=== PATIENT | female | born 1980 | race Caucasian/White ===

== ENCOUNTER 2018-03-20 07:57 | Emergency (ER) | payer OTHER ==
[~2018-03-20] VITALS: Ht 160 cm; Wt 88.5 kg
[2018-03-20] MEDS ORDERED: MORPHINE SULFATE 2 MG/ML SYR IV STA ×2 (08:31→10:36)
[2018-03-20] MEDS ORDERED: KETOROLAC TROMETHAMINE 30 MG/ML VIAL IV STA (08:31)
[2018-03-20] MEDS ORDERED: DIATRIZOATE MEGL/DIATRIZOA SOD 30 ML BTL PO ONE (08:40)
[2018-03-20] MEDS ORDERED: ONDANSETRON HCL 4 MG ORAL DISINTEGRATING TAB PO ONE (08:45)
[2018-03-20 09:00] LABS: BASOPHILS # (AUTO) 0.1 (0.0-0.1); BASOPHILS % 0.4 % (0.0-1.0); EOSINOPHILS # (AUTO) 0.1 (0.0-0.4); EOSINOPHILS % 0.9 % (0.0-6.0); HEMOGLOBIN 12.4 g/dL (12.0-16.0); LYMPHOCYTES # (AUTO) 2.8 (1.0-3.2); LYMPHOCYTES % 18.7 % (18.0-39.1); MEAN CORPUSCULAR HGB CONC 33.5 g/dL (31-35); MEAN CORPUSCULAR VOLUME 86.4 fL (81-99); MONOCYTES # (AUTO) 0.5 (0.2-0.8); MONOCYTES % 3.3 % (4.4-11.3); NEUTROPHILS # (AUTO) 11.4 (2.1-6.9); NEUTROPHILS % 76.2 % (38.7-80.0); PLATELET COUNT 327 x10e3/uL (140-360); RED BLOOD COUNT 4.28 x10e6/uL (3.6-5.1); RED CELL DISTRIBUTION WIDTH 13.2 % (11.7-14.4)
[2018-03-20 09:12] LABS: ALANINE AMINOTRANSFERASE 25 IU/L (0-55); ALBUMIN 3.7 g/dL (3.5-5.0); ALBUMIN/GLOBULIN RATIO 1.1 (0.8-2.0); ALKALINE PHOSPHATASE 95 IU/L (40-150); AMYLASE 47 U/L (25-125); BLOOD UREA NITROGEN 10 mg/dL (7-26); BUN/CREATININE RATIO 13 (6-25); CALCIUM 9.5 mg/dL (8.4-10.2); CARBON DIOXIDE 23 mmol/L (22-29); CHLORIDE 105 mmol/L (98-107); CREATININE, SERUM 0.78 mg/dL (0.57-1.11); EST GLOMERULAR FILTRATION RATE > 60 ML/MIN (60-); GLUCOSE 120 mg/dL (74-118); LIPASE 33 U/L (8-78); SODIUM 139 mmol/L (136-145)
[2018-03-20 10:18] LABS: BILIRUBIN,URINE NEGATIVE (NEGATIVE); URINE UROBILINOGEN 0.2 mg/dL (0.2 - 1)
[2018-03-20 10:19] LABS: CLARITY,URINE SL CLOUDY (CLEAR); COLOR,URINE YELLOW (YELLOW); KETONES,URINE NEGATIVE (NEGATIVE); LEUKOCYTE ESTERASE ,URINE TRACE (NEGATIVE); NITRITE,URINE NEGATIVE (NEGATIVE); PROTEIN,URINE DIPSTICK NEGATIVE (NEGATIVE)
[2018-03-20 10:36] LABS: EPITHELIAL CELLS,URINE RARE /LPF; RBC,URINE 21-50 /HPF (0-5)
[2018-03-20 10:37] LABS: BACTERIA,URINE FEW /HPF
[2018-03-20] MEDS ORDERED: MORPHINE SULFATE 2 MG/ML SYR ONE (10:43)
--- NOTE | 2018-03-20 11:20 | Diagnostic Imaging Report ---
PROCEDURE: CT ABDOMEN AND PELVIS WITH CONTRAST TECHNIQUE: The abdomen and pelvis were scanned utilizing a multidetector helical scanner from the diaphragm to the lesser trochanter after the IV administration of 100 cc of Isovue 370 and the oral administration of Gastrografin intermixed with water. Coronal and sagittal multiplanar reformations were obtained. DLP: 759.11 mGy-cm COMPARISON: None. INDICATIONS: RIGHT SIDE ABD PAIN FINDINGS: LOWER THORAX: Normal. HEPATOBILIARY: No focal hepatic lesions. No biliary ductal dilatation. Gallbladder is absent. SPLEEN: No splenomegaly. Small splenule adjacent to the spleen PANCREAS: No focal masses or ductal dilatation. ADRENALS: There is a 2.7 cm left adrenal mass. KIDNEYS/URETERS: Mild right hydronephrosis and hydroureter. Right interpolar stone measures 3 mm and right lower pole stone measures 5.6 mm. There is a 4.4 mm ureteral stone at the ureterovesical junction. A second smaller stone is just proximal to this. PELVIC ORGANS/BLADDER: There is a 4.8 mm stone within the superior aspect of the bladder. Right ovarian hemorrhagic cyst measures 2 cm. PERITONEUM / RETROPERITONEUM: No free air or fluid. LYMPH NODES: No lymphadenopathy. VESSELS: Unremarkable. GI TRACT: No distention or wall thickening. The appendix is normal. BONES AND SOFT TISSUES: Unremarkable. IMPRESSION: 1. Mild right hydronephrosis and ureterectasis caused by a distal UVJ stone. 2. Additional stones are present within the right kidney. 3. Incidental left adrenal mass needs further workup with an adrenal mass protocol MRI. 4. Hemorrhagic right ovarian cyst. Vnicent Oakley D.O. Dictated by: Vincent Oakley D.O. on 03/20/2018 at 11:24 Electronically approved by: Vincent Oakley D.O. on 03/20/2018 at 11:24
[2018-03-20] MEDS ORDERED: IOPAMIDOL 370 MG/ML 200 ML INFUS..BTL INJ ONE (14:48)
[2018-03-20] MEDS ORDERED: SODIUM CHLORIDE 0.9% 50ML 50 ML ONE (14:48)
== END 2018-03-20 12:54 | disposition home or self-care (01) ==
LOC: ER 07:57
DX: N20.2 Calculus of kidney with calculus of ureter (principal); E27.8 Other specified disorders of adrenal gland
CPT/HCPCS: 36415; 74177; 80053; 81001; 82150; 83690; 84702; 85025; 99284; J1885; J2270; Q9967

== ENCOUNTER → 2018-04-18 | Day surgery (SDC) | payer OTHER ==
[2018-04-11 15:21] LABS: BASOPHILS # (AUTO) 0.1 (0.0-0.1); BASOPHILS % 0.3 % (0.0-1.0); EOSINOPHILS # (AUTO) 0.2 (0.0-0.4); EOSINOPHILS % 1.4 % (0.0-6.0); HEMATOCRIT 35.8 % (34.2-44.1); HEMOGLOBIN 12.2 g/dL (12.0-16.0); LYMPHOCYTES # (AUTO) 3.8 (1.0-3.2); LYMPHOCYTES % 26.7 % (18.0-39.1); MEAN CORPUSCULAR HEMOGLOBIN 29.8 pg (28-32); MEAN CORPUSCULAR HGB CONC 34.1 g/dL (31-35); MEAN CORPUSCULAR VOLUME 87.3 fL (81-99); MONOCYTES # (AUTO) 0.7 (0.2-0.8); MONOCYTES % 4.7 % (4.4-11.3); NEUTROPHILS # (AUTO) 9.5 (2.1-6.9); NEUTROPHILS % 66.6 % (38.7-80.0); PLATELET COUNT 289 x10e3/uL (140-360); RED CELL DISTRIBUTION WIDTH 13.3 % (11.7-14.4)
[~2018-04-18] MED LIST: CEFTRIAXONE SOD 1 GM VIAL ONE; DEXAMETHASONE SOD PHOS INJ 4 MG/ML VIAL ONE; FENTANYL CITRATE/PF 100MCG/2 ML INJ ONE; IOPAMIDOL 300MG/ML 50ML INFUS..BTL IV ONE; LIDOCAINE HCL 2% LOCAL INJ 5 ML SDV VIAL INJ ONE; METOCLOPRAMIDE HCL 10 MG/2ML VIAL ONE; ONDANSETRON HCL INJ 2 MG/ML VIAL ONE; PROPOFOL IV EMULSION 10 MG/ML 20 ML VIAL ONE; SEVOFLURANE INHAL SOLN 250 ML PEN BTL ONE
--- NOTE | 2018-05-15 17:28 | Operative Report ---
DATE OF PROCEDURE: April 18, 2018 PREOPERATIVE DIAGNOSIS: Right distal ureteral stone. POSTOPERATIVE DIAGNOSIS: Right distal ureteral stone. PROCEDURES PERFORMED: 1. Cystostomy. 2. Bilateral retrograde pyelograms. 3. Right ureteroscopy. 4. Placement of right ureteral stents. ANESTHESIA: General. ESTIMATED BLOOD LOSS: Minimal. INDICATIONS: Ms. Delma Toth is a 37-year-old woman with a history of right distal ureteral stone found by CAT scan who has had considerable continued pain and nausea despite outpatient trial of passage. She now presents for definitive surgical management of this problem. PROCEDURE IN DETAIL: The patient was brought into the operating room and placed in the supine position, and after initiation of general anesthesia was placed in the dorsal lithotomy position and prepped and draped in the usual sterile fashion. Cystourethroscopy was performed using 21-Kittitian cystoscope. The anterior and posterior regions were noted to be normal. Bladder was entered without difficulty. Upon entrance into the bladder the ureteral orifices were within normal anatomical position and produced clear reflux. There was small, sand-like calcifications in the trigone, but no large stone appreciated. There were no mucosal lesions identified. Using a 5-Kittitian cone-tipped catheter, bilateral retrograde pyelograms were performed. These revealed largely unobstructed systems bilaterally without any obvious filling defects or calcifications. Given the patient's history of continued pain even just prior to anesthesia, right ureteroscopy was performed. The ureteral orifice was dilated with the UroMax balloon and flexible ureteroscopy was performed. This revealed no stones or calcifications on the right side. There was mild irritation seen in the region of this dilated ureter of unclear etiology. Given the dilation and again the pain that was noted preoperatively, decision was made to leave the stent on that side. A stent was left. One coil was in the medial pelvis and one coil was in the bladder. The string was allowed to exit the urethral meatus. The patient's bladder was drained in its entirety and cystoscope and sheath were removed. She was returned to supine position and anesthesia was reversed. She was transferred to the postanesthesia care unit in good condition. Of note, the needle and instrument count were correct at the conclusion of the case. Job#: [id number]
== END | disposition home or self-care (01) ==
LOC: OR 07:27
PROVIDERS: ATTEND Urology
DX: N20.1 Calculus of ureter (principal); N32.89 Other specified disorders of bladder; Z01.812 Encounter for preprocedural laboratory examination; Z68.34 Body mass index [BMI] 34.0-34.9, adult
CPT/HCPCS: 36415; 52332; 52351; 74420; 81025; 85025; J0696; J1100; J2001; J2405; J2765; Q9967